=== PATIENT | female | born 1960 ===

== ENCOUNTER 2018-01-30 14:38 | Emergency (ER) | payer OTHER ==
[~2018-01-30] VITALS: Ht 152.4 cm; Wt 120.7 kg
[2018-01-30] MEDS ORDERED: AVAPRO300 MG (15:18)
[2018-01-30] MEDS ORDERED: NORVASC5 MG (15:18)
== END 2018-01-30 20:11 | disposition home or self-care (01) ==
LOC: ER 14:38
DX: K52.89 Other specified noninfective gastroenteritis and colitis (principal); N28.1 Cyst of kidney, acquired